=== PATIENT | female | born 1990 | race Two or more races ===

== ENCOUNTER 2016-08-02 15:32 | Emergency (ER) | payer MEDICAID ==
[~2016-08-02] VITALS: Ht 170.2 cm; Wt 125.2 kg
[2016-08-02 18:58] VITALS: BP 120/63
== END 2016-08-02 18:58 | disposition home or self-care (01) ==
LOC: ED 15:32
DX: M54.5 Low back pain (principal)

== ENCOUNTER 2019-07-04 09:46 | Emergency (ER) | payer MEDICAID ==
[~2019-07-04] VITALS: Ht 172.7 cm; Wt 76.2 kg
[2019-07-04 09:57] VITALS: Ht 172.7 cm; Wt 76.2 kg
[2019-07-04 12:50] VITALS: BP 151/64
== END 2019-07-04 12:50 | disposition home or self-care (01) ==
LOC: ED 09:46
DX: J20.9 Acute bronchitis, unspecified (principal)
CPT/HCPCS: 87804; J7512; J7620; Q0092

== ENCOUNTER 2019-11-30 10:19 | Emergency (ER) | payer MEDICAID, SELFPAY ==
[~2019-11-30] VITALS: Ht 167.6 cm; Wt 113.4 kg
[2019-11-30 10:21] VITALS: Ht 167.6 cm; Wt 113.4 kg
[2019-11-30 11:42] VITALS: BP 138/76
== END 2019-11-30 11:42 | disposition home or self-care (01) ==
LOC: ED 10:19
DX: U07.1 COVID-19 (principal); H92.03 Otalgia, bilateral
CPT/HCPCS: U0003-CS